=== PATIENT | male | born 1965 | race Caucasian/White ===

== ENCOUNTER 2017-09-06 11:51 | Emergency (ER) | payer MEDICARE ==
[2017-09-06 12:01] VITALS: BP 178/94; PULSE 87; O2SAT 96
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
== END 2017-09-06 12:17 | disposition left against medical advice (07) ==
LOC: ED 11:51
DX: G89.4 Chronic pain syndrome (principal); R07.9 Chest pain, unspecified; M19.90 Unspecified osteoarthritis, unspecified site; F32.9 Major depressive disorder, single episode, unspecified; Z72.0 Tobacco use
CPT/HCPCS: 72146; 72148; 73721; 99282